=== PATIENT | female | born 1945 | race Caucasian/White ===

== ENCOUNTER → 2022-06-27 13:08 | Outpatient (BNVA) | payer MEDICARE, OTHER, SELFPAY | PROVIDERS: PCP Nurse Practitioner Adult Health; Visit Provider Physician Assistant | DX: E66.01 Morbid (severe) obesity due to excess calories (principal); I10 Essential (primary) hypertension; N20.0 Calculus of kidney; J45.909 Unspecified asthma, uncomplicated; E11.9 Type 2 diabetes mellitus without complications; Z68.41 Body mass index [BMI] 40.0-44.9, adult | CPT/HCPCS: 99202 ==

== ENCOUNTER → 2022-07-18 14:44 | Outpatient (BNVA) | payer MEDICARE, OTHER, SELFPAY | PROVIDERS: PCP Nurse Practitioner Adult Health; Referring Provider Nurse Practitioner Adult Health; Visit Provider Dietitian, Registered | DX: E66.01 Morbid (severe) obesity due to excess calories (principal); Z68.41 Body mass index [BMI] 40.0-44.9, adult | CPT/HCPCS: 97802 ==

== ENCOUNTER → 2022-08-15 14:55 | Outpatient (BNVA) | payer MEDICARE, OTHER, SELFPAY | PROVIDERS: PCP Nurse Practitioner Adult Health; Visit Provider Physician Assistant | DX: E66.01 Morbid (severe) obesity due to excess calories (principal); E11.9 Type 2 diabetes mellitus without complications; I10 Essential (primary) hypertension; Z68.41 Body mass index [BMI] 40.0-44.9, adult | CPT/HCPCS: Q3014 ==

== ENCOUNTER → 2022-10-07 13:54 | Outpatient (BNVA) | payer MEDICARE, OTHER, SELFPAY | PROVIDERS: PCP Nurse Practitioner Adult Health; Visit Provider Physician Assistant | DX: E66.01 Morbid (severe) obesity due to excess calories (principal); N20.0 Calculus of kidney; E11.9 Type 2 diabetes mellitus without complications; I10 Essential (primary) hypertension; Z68.41 Body mass index [BMI] 40.0-44.9, adult; Z79.84 Long term (current) use of oral hypoglycemic drugs | CPT/HCPCS: 99212 ==

== ENCOUNTER 2022-11-11 15:00 | Outpatient (AMB) | payer MEDICARE, OTHER, SELFPAY ==
--- NOTE | 2022-11-11 15:12 | A.OFFVIS_ITS ---
Intake VS Expanded 11/11/22 15:15 Height 4 ft 11 in Weight 199 lb 8 oz BMI 40.3 Intake Visit Reasons: VIDEO F/U [facility] Allergies COUMADIN Allergy (Mild, Uncoded 06/27/22 13:52) PARALYZED IVP DYE Allergy (Mild, Uncoded 06/27/22 13:52) PARALYZED SPONGE TOFFEE Allergy (Mild, Uncoded 06/27/22 13:52) HIVES HPI HPI Comments History of Present Illness Details [facility] follow up. First appt on 06/27/22 at 213.8 lbs. TBWL of 14 lbs or 6%. Is being referred to nephrology for kidney stones on November 28 - and wants weight check, I will review with her by telephone. Having 2 meals and 1 bar or shake or soup. Wants to have a sweet treat at night - recommended sugar free popsicles or fudge pops gym- 3d/week - treadmill, chair exercises PFSH Surgical History History of knee replacement, total Hx of appendectomy Hx of cholecystectomy Hx of foot surgery Hx of hand surgery Family History Son No problems noted. Social History Alcohol intake: never Patient Tobacco Use Status: Never used Tobacco Assessment & Plan Assessment & Plan (1) Morbid obesity: Code(s): E66.01 - Morbid (severe) obesity due to excess calories Plan: 76 yo woman who willson finished our MWL program with 14 lbs or 6% TBWL. We discussed that a healthy exercise routine would be 30 minutes daily of w hatever exercise she wants, treadmill, walking, pool , sit to be fit.... Meal plan - 2 well balanced meals of protein and vegetables. ! serving h1/2 c healthy carbs per day and a sugar free pop prn. She will have weight check at her request on Nov 28 and I will call her with the results and recommendations. Telehealth Telehealth Location of provider rendering services: practice address Location of patient: address on file Patient Identification confirmed using: Name, : Yes Telehealth method: video Patient verbally consented to treatment: Yes Patient verbally consented to billing insurance company: Yes Patient informed of any privacy concerns related to visit: Yes Coding Level of Care Code Tele Est Pt Level 4 (66788) Diagnoses Morbid obesity E66.01
[2022-11-11 15:15] VITALS: BMI 40.3
== END 2022-11-11 15:44 | disposition home or self-care (01) ==
LOC: HO.HBS 15:43
PROVIDERS: PCP Nurse Practitioner Adult Health; Visit Provider Physician Assistant
DX: E66.01 Morbid (severe) obesity due to excess calories (principal); Z68.41 Body mass index [BMI] 40.0-44.9, adult
CPT/HCPCS: 99213

== ENCOUNTER → 2022-11-11 15:00 | Outpatient (BNVA) | payer MEDICARE, OTHER, SELFPAY | PROVIDERS: PCP Nurse Practitioner Adult Health; Visit Provider Physician Assistant | DX: E66.01 Morbid (severe) obesity due to excess calories (principal); Z68.41 Body mass index [BMI] 40.0-44.9, adult | CPT/HCPCS: Q3014 ==